=== PATIENT | male | born 1955 | race Caucasian/White ===

== ENCOUNTER 2019-05-31 07:20 | Emergency (ER) | payer OTHER ==
--- NOTE | 2019-05-31 07:56 | ED Physician Documentation ---
PD HPI SKIN - Stated complaint Stated Complaint: R LEG INFECTION - Chief complaint Chief Complaint: Wound - History obtained from History obtained from: Patient - History of Present Illness Timing - onset: How many days ago (6) Timing - duration: Days (6) Timing - details: Gradual onset Location: RLE Quality / character: Painful, Discolored, Swelling, Draining Associated symptoms: No: Fever Recently seen: Not recently seen - Additional information Additional information: There is a 63-year-old man who presents with complaints that he developed infection on the right lower leg 6 days ago progressively got larger and finally ruptured and started draining. He said he has been experiencing this recurrently since October or November since he moved here from [place]. He usually put heat packs on them and they will open and drain spontaneously. He has been putting Neosporin on it. He was referred to a door to door selling distributor by his primary care provider but he got snowed out of the appointment after waiting 4 weeks last week. He is feeling very fatigued but has not been running any fever. Never had this cultured. He thinks he is been on 1 round of antibiotics at one point for it. He does have vitiligo but does not take medications for it and denies any concerns regarding HIV. 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 Interestingly just before he started getting these boils his primary care provider in [place] where he lived previously had placed him on 2 rounds of a Medrol Dosepak for low back pain prior to his travel across country to move here. Review of Systems Constitutional: reports: Fatigue. denies: Fever Skin: reports: Rash, Lesions Neurologic: reports: Generalized weakness Endocrine: reports: Other (Patient was borderline diabetic but he lost 45 pounds and monitors his blood sugar. He no longer has hyperglycemia.) Immunocompromised: denies: Immunocompromised, HIV/AIDS PD PAST MEDICAL HISTORY - Present Medications Home Medications: Ambulatory Orders Medication Instructions Recorded Confirmed Mupirocin 22 gm TP BID #22 oint...g. 05/31/19 Sulfamethox/Trimeth 800/160 1 each PO BID #14 tablet 05/31/19 [Bactrim Ds 800/160] - Allergies Allergies/Adverse Reactions: Allergies Allergy/AdvReac Type Severity Reaction Status Date / Time morphine AdvReac Unknown Verified 05/31/19 07:23 PD ED PE NORMAL - Vitals Vital signs reviewed: Yes - General General: Alert and oriented X 3, No acute distress, Well developed/nourished, Other (Very pleasant 63-year-old man who is not in any acute distress. He has images on his phone that show the progression of this particular lesion.) - HEENT HEENT: Atraumatic - Respiratory Respiratory: No respiratory distress - Derm Derm: Other (The lateral anterior aspect of the right lower leg there is a circular area of erythema and induration that measures approximately 4 cm in diameter in the center of this is open and oozing a bloody thicker material which was sent for culture. 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 I discussed with the patient my concerns that he has a MRSA colonization and how to work on relieving that with Hibiclens skin washings, taking probiotics. At this point this wound is open and draining I do not see any indication for antibiotics but he was provided a prescription for Bactrim if the redness continues to spread. He is also given a prescription for mupirocin ointment and instructed on its use. Follow-up with his primary care provider as needed. Departure - Departure Disposition: 01 Home, Self Care Clinical Impression: Abscess Condition: Good Instructions: ED Abscess IandD Follow-Up: SKYE ROBLES MD [Primary Care Provider] - Prescriptions: Mupirocin 22 gm TP BID #22 oint...g. Sulfamethox/Trimeth 800/160 [Bactrim Ds 800/160] 1 each PO BID #14 tablet Comments: Use Hibiclens or chlorhexidine soap to wash your entire body daily for the next 10 days and then weekly or every other week basis. Use Cetaphil lotion to help keep your skin moisturized. Continue to do warm compresses, Epson salt soaks or sitz baths to keep this open and draining. Use the mupirocin ointment twice a day for the next 3 to 5 days and if you have any other lesions that develop and open up you can use it on those as well. Monitor the redness and if it is spreading outside the margins that were outlined here today start the Bactrim antibiotic twice a day. We will culture this today and you may get a call regarding the results. Otherwise results can be followed up with Dr. Robles. Take probiotics orally that can be purchased over the counter. [employer] or [employer] brand are a good product, but if you cannot find those specific probiotics ([employer] food stores tend to have a better selection than the Pharmacy) any probiotic is better than none. Follow-up with your primary care provider for reevaluation if you continue to experience these. Sometimes people need a nasal swab culture to rule out intranasal colonization with the MRSA bacteria that can continue to cause outbreaks even if we cleared off the skin.
[2019-05-31 08:00] VITALS: BP 173/111
== END 2019-05-31 08:06 | disposition home or self-care (01) ==
LOC: ED 07:20
DX: L02.415 Cutaneous abscess of right lower limb (principal)
CPT/HCPCS: 87070; 87181; 87205; 99283; 99284

== ENCOUNTER 2019-06-16 08:00 | Outpatient (CLI) | payer OTHER ==
[2019-06-16 12:32] LABS: BASOPHILS # (AUTO) 0.1 10^3/uL (0.0-0.1); BASOPHILS % (AUTO) 0.9 %; EOSINOPHILS # (AUTO) 0.1 10^3/uL (0.0-0.7); EOSINOPHILS % (AUTO) 1.3 %; HGB - HEMOGLOBIN 16.2 g/dL (14.0-18.0); LYMPHOCYTES # (AUTO) 1.9 10^3/uL (1.5-3.5); LYMPHOCYTES % (AUTO) 20.2 %; MEAN CORPUSCULAR HGB CONC 32.1 g/dL (32.0-36.0); MEAN CORPUSCULAR VOLUME 90.2 fL (80.0-94.0); MEAN PLATELET VOLUME 9.9 fL (7.4-11.4); MONOCYTES # (AUTO) 0.8 10^3/uL (0.0-1.0); MONOCYTES % (AUTO) 8.4 %; NEUTROPHILS # (AUTO) 6.3 10^3/uL (1.5-6.6); NEUTROPHILS % (AUTO) 68.8 %; PLT - PLATELET COUNT 227 10^3/uL (130-450); RED BLOOD COUNT 5.59 10^6/uL (4.70-6.10); RED CELL DISTRIBUTION WIDTH 13.8 % (12.0-15.0); WHITE BLOOD COUNT 9.2 x10^3/uL (4.8-10.8)
[2019-06-16 13:12] LABS: HB2 TOTAL 16.3 g/dL; HEMOGLOBIN A1C 0.79 g/dL; HEMOGLOBIN A1C % 6.6 % (4.6-6.2)
[2019-06-16 13:14] LABS: ALBUMIN 4.6 g/dL (3.2-5.5); ALBUMIN/GLOBULIN RATIO 1.5 (1.0-2.2); ALKALINE PHOSPHATASE 53 IU/L (42-121); ALT ALANINE AMINOTRANSFERASE 44 IU/L (10-60); AST ASPARTATE AMINOTRANSFERASE 29 IU/L (10-42); BILIRUBIN,TOTAL 0.8 mg/dL (0.2-1.0); BUN - BLOOD UREA NITROGEN 17 mg/dL (6-20); CALCIUM 9.4 mg/dL (8.5-10.3); CARBON DIOXIDE - CO2 25 mmol/L (21-32); CHLORIDE 102 mmol/L (101-111); CHOL/HDL RATIO 3.5 (<5.0); CHOLESTEROL 159 mg/dL; CREATININE 0.9 mg/dL (0.6-1.2); GFR - MDRD 85 (>89); GLUCOSE 118 mg/dL (70-100); HDL CHOLESTEROL 46 mg/dL; LDL CHOLESTEROL,CALCULATED 98 mg/dL; LDL/HDL RATIO 2.1 (<3.6); SODIUM 135 mmol/L (135-145); TOTAL PROTEIN 7.7 g/dL (6.7-8.2); VLDL CHOLESTEROL 15 mg/dL
== END 2019-06-16 23:59 | disposition home or self-care (01) ==
LOC: LAB.N 08:00
PROVIDERS: ATTEND Family Medicine
DX: E78.5 Hyperlipidemia, unspecified (principal); I10 Essential (primary) hypertension; E11.9 Type 2 diabetes mellitus without complications; L02.91 Cutaneous abscess, unspecified; Z85.46 Personal history of malignant neoplasm of prostate
CPT/HCPCS: 36415; 80053; 80061; 83036; 83721; 84153; 84443; 85025

== ENCOUNTER 2020-04-16 07:00 | Outpatient (CLI) | payer OTHER ==
[2020-04-16 20:10] LABS: BASOPHILS # (AUTO) 0.1 10^3/uL (0.0-0.1); BASOPHILS % (AUTO) 0.9 %; EOSINOPHILS # (AUTO) 0.1 10^3/uL (0.0-0.7); EOSINOPHILS % (AUTO) 1.6 %; HGB - HEMOGLOBIN 15.8 g/dL (14.0-18.0); LYMPHOCYTES # (AUTO) 1.9 10^3/uL (1.5-3.5); LYMPHOCYTES % (AUTO) 24.8 %; MEAN CORPUSCULAR HEMOGLOBIN 30.4 pg (27.0-31.0); MEAN CORPUSCULAR HGB CONC 32.8 g/dL (32.0-36.0); MEAN CORPUSCULAR VOLUME 92.7 fL (80.0-94.0); MEAN PLATELET VOLUME 10.3 fL (7.4-11.4); MONOCYTES # (AUTO) 0.7 10^3/uL (0.0-1.0); MONOCYTES % (AUTO) 8.5 %; NEUTROPHILS # (AUTO) 4.9 10^3/uL (1.5-6.6); NEUTROPHILS % (AUTO) 64.1 %; PLT - PLATELET COUNT 174 10^3/uL (130-450); RED BLOOD COUNT 5.19 10^6/uL (4.70-6.10); RED CELL DISTRIBUTION WIDTH 13.8 % (12.0-15.0); WHITE BLOOD COUNT 7.6 x10^3/uL (4.8-10.8)
[2020-04-16 20:25] LABS: CREATININE,URINE 244.3 mg/dL; MICROALBUM/CREATININE RATIO,UR 3.3 ug/mg (<30.0); MICROALBUMIN,URINE 0.8 mg/dL (0-300.0)
[2020-04-16 20:35] LABS: ALBUMIN 4.4 g/dL (3.2-5.5); ALBUMIN/GLOBULIN RATIO 1.6 (1.0-2.2); ALKALINE PHOSPHATASE 43 IU/L (42-121); ALT ALANINE AMINOTRANSFERASE 41 IU/L (10-60); AST ASPARTATE AMINOTRANSFERASE 28 IU/L (10-42); BILIRUBIN,TOTAL 0.7 mg/dL (0.2-1.0); BUN - BLOOD UREA NITROGEN 17 mg/dL (6-20); CALCIUM 9.7 mg/dL (8.5-10.3); CARBON DIOXIDE - CO2 28 mmol/L (21-32); CHLORIDE 103 mmol/L (101-111); CHOL/HDL RATIO 2.7 (<5.0); CHOLESTEROL 141 mg/dL; CREATININE 0.8 mg/dL (0.6-1.2); GLUCOSE 110 mg/dL (70-100); HDL CHOLESTEROL 52 mg/dL; LDL CHOLESTEROL,CALCULATED 78 mg/dL; LDL/HDL RATIO 1.5 (<3.6); SODIUM 139 mmol/L (135-145); TOTAL PROTEIN 7.1 g/dL (6.7-8.2); VLDL CHOLESTEROL 11 mg/dL
[2020-04-16 21:07] LABS: HEMOGLOBIN A1c% 6.9 % (4.27-6.07)
== END 2020-04-16 23:59 | disposition home or self-care (01) ==
LOC: LAB.WCP 07:00
PROVIDERS: ATTEND Family Medicine
DX: E11.9 Type 2 diabetes mellitus without complications (principal); E78.5 Hyperlipidemia, unspecified; Z85.46 Personal history of malignant neoplasm of prostate; I10 Essential (primary) hypertension; J44.9 Chronic obstructive pulmonary disease, unspecified
CPT/HCPCS: 36415; 80053; 80061; 82043; 82570; 83036; 83721; 84153; 84443; 85025

== ENCOUNTER 2021-06-07 14:39 | Outpatient (CLI) | payer MEDICARE, OTHER ==
--- NOTE | 2021-06-07 15:31 | CT Report ---
PROCEDURE: HEAD WO INDICATIONS: Loss of consciousness after fall TECHNIQUE: Noncontrast 4.5 mm thick angled axial sections acquired from the foramen magnum to the vertex. For r adiation dose reduction, the following was used: automated exposure control, adjustment of mA and/or kV according to patient size. COMPARISON: None. FINDINGS: Image quality: Excellent. CSF spaces: Basal cisterns are patent. No extra-axial fluid collections. Ventricles are normal in size and shape. Brain: No midline shift. No intracranial masses or hemorrhage. Pineda-white matter interface is norm al. Skull and face: Calvarium and visualized facial bones are intact, without suspicious lesions. Sinuses: Visualized sinuses and mastoids are clear. IMPRESSION: No acute intracranial abnormality. Reviewed by: Johnson Menon MD on 06/07/2021 3:30 PM PST Approved by: Johnson Menon MD on 06/07/2021 3:30 PM [facility] Station ID: [id number]
== END 2021-06-07 14:40 | disposition home or self-care (01) ==
LOC: DI 14:39
PROVIDERS: ATTEND Internal Medicine
DX: R55 Syncope and collapse (principal); M54.50 Low back pain, unspecified; S06.9X9A Unspecified intracranial injury with loss of consciousness of unspecified duration, initial encounter; W19.XXXA Unspecified fall, initial encounter

== ENCOUNTER 2021-07-01 06:50 | Outpatient (CLI) | payer MEDICARE, OTHER ==
[2021-07-01 07:42] LABS: CREATININE 0.8 mg/dL (0.6-1.2)
[2021-07-01] MEDS ORDERED: GADOBUTROL 10 MMOL/10 ML VIAL ONE (08:26)
--- NOTE | 2021-07-01 13:36 | MRI Report ---
PROCEDURE: Lumbar Spine W/WO INDICATIONS: LOW BACK PAIN CONTRAST: IV CONTRAST: Gadavist ml: 9 TECHNIQUE: Noncontrast sagittal T1 spin echo and T2 fast spin echo, sagittal STIR, axial T1 and T2 fast spin ech o through the lumbar spine. In cases with scoliosis, additional coronal T2 fast spin echo may be per formed. After the administration of contrast, sagittal and axial T1 spin echo with fat saturation th rough the lumbar spine. COMPARISON: None. FINDINGS: Image quality: Excellent. Alignment and curvature: There is normal bony alignment. Marrow: Marrow is of normal overall signal. No acute vertebral body compression fractures. No susp icious marrow enhancement. Spinal cord: Conus medullaris terminates at the L1 level. Visualized spinal cord demonstrates vinny l signal, without suspicious enhancement. Paraspinous soft tissues: No paravertebral masses or abnormal enhancement. T12-L1: Normal in appearance. L1-L2: The disc height is well-preserved. There is loss of disc signal seen. Minimal disc bulge ca n be seen at this level. Mild to moderate facet hypertrophy is seen. Mild bilateral neural foramina l narrowing is seen. No central canal narrowing is seen. L2-L3: The disc height and disc signal are well preserved. Mild disc bulge is seen. Moderate fac et hypertrophy is seen. There is moderate left-sided and mild right-sided neuroforaminal narrowing. Mild to moderate central canal narrowing is seen. L3-L4: The disc height is well-preserved. There is loss of disc signal seen. Moderate disc bulge i s seen at this level. A superimposed central disc protrusion is seen. At least moderate facet hypert rophy can be seen at this level. There is moderate to severe bilateral neuroforaminal narrowing seen, left worse than right. Compression is seen upon the exiting nerve roots. Mild central canal narrow ing is seen. L4-L5: Mild loss of disc height and disc signal are seen. Moderate disc bulge is seen at this leve l. A superimposed central disc protrusion is seen. At least moderate facet hypertrophy is seen at th is level. There is moderate to severe left-sided and at least moderate right-sided neuroforaminal paz rowing. Compression is seen upon the exiting nerve roots. Mild loss of disc height and disc signal are seen. L5-S1: Mild loss of disc height and disc signal are seen. Moderate disc bulge is seen, with a centr al/left disc extrusion, with inferior migration of the disc material, as on series 401 image 9 and on series 701 image 5. Moderate facet hypertrophy is seen. There is moderate to severe bilateral neur oforaminal narrowing seen. Compression is seen upon the exiting nerve roots. Moderate central canal narrowing is seen. IMPRESSION: Multiple levels of lumbar spine degenerative change are seen, which are worst at the L5-S1 level. At this level, there is a central/left disc extrusion present. Moderate to severe bilateral neuroforamin al narrowing is also seen at this level, with associated exiting L5 nerve root compression. Reviewed by: Fritz Salmon MD on 07/01/2021 12:34 PM [place] Approved by: Fritz Salmon MD on 07/01/2021 12:34 PM [facility] [place] Station ID: [id number]
[2021-07-01] MEDS ORDERED: GADOBUTROL 10 MMOL/10 ML VIAL IVP ONE (16:29)
== END 2021-07-01 06:51 | disposition home or self-care (01) ==
LOC: LAB 06:50
PROVIDERS: ATTEND Internal Medicine
DX: S06.9X9A Unspecified intracranial injury with loss of consciousness of unspecified duration, initial encounter (principal); Z91.81 History of falling; R55 Syncope and collapse; M47.816 Spondylosis without myelopathy or radiculopathy, lumbar region; M51.36 Other intervertebral disc degeneration, lumbar region; M48.061 Spinal stenosis, lumbar region without neurogenic claudication; M51.26 Other intervertebral disc displacement, lumbar region; M51.27 Other intervertebral disc displacement, lumbosacral region; M47.817 Spondylosis without myelopathy or radiculopathy, lumbosacral region; M51.37 Other intervertebral disc degeneration, lumbosacral region; M48.07 Spinal stenosis, lumbosacral region
CPT/HCPCS: 36415; 72158; 82565; A9585

== ENCOUNTER 2023-01-09 12:28 | Outpatient (CLI) | payer MEDICARE, OTHER ==
--- NOTE | 2023-01-09 14:47 | Ultrasound Report ---
PROCEDURE: Abdomen Limited INDICATIONS: ELEVATED ENZYMES LEVEL TECHNIQUE: Real-time focused scanning was performed of the abdomen, with image documentation. COMPARISONS: None. FINDINGS: Liver: Increased liver echogenicity. Lobular contour to the liver. 5 mm hypoechoic focus, favored to represent a simple cyst. Gallbladder: Unremarkable. Biliary ducts: Intrahepatic bile ducts are non-dilated. Extrahepatic bile duct caliber measures 2 m m. Normal is 6-7 mm or less in diameter, or 10 mm or less post-cholecystectomy. Pancreas: Visualized portions of the pancreas are sonographically normal. Right kidney: Normal in size and echotexture. Right kidney measures 11.5 cm long. No hydronephrosis or nephrolithiasis. No solid masses. No complex renal cystic lesions which require follow-up. Aorta: Visualized aorta is normal in caliber at less than 3 cm. IVC: Intrahepatic inferior vena cava is patent. IMPRESSION: 1.Increased echogenicity of the liver with a lobular contour raising concern for cirrhosis with super imposed steatosis. 2.There is a 5 mm hypoechoic focus within the left hepatic lobe, favored to represent a simple cyst. 3.The gallbladder is within normal limits. No intra or extrahepatic biliary ductal dilatation. Reviewed by: Almas Addison MD on 01/09/2023 2:46 PM PDT Approved by: Almas Addison MD on 01/09/2023 2:46 PM PDT Station ID: [id number]
== END 2023-01-09 12:29 | disposition home or self-care (01) ==
LOC: DI 12:28
PROVIDERS: ATTEND Internal Medicine
DX: R74.8 Abnormal levels of other serum enzymes (principal); R93.2 Abnormal findings on diagnostic imaging of liver and biliary tract

== ENCOUNTER 2023-05-20 15:13 | Outpatient (CLI) | payer MEDICARE, OTHER ==
--- NOTE | 2023-05-20 16:57 | CT Report ---
PROCEDURE: Head WO INDICATIONS: HEADACHE TECHNIQUE: Noncontrast 4.5 mm thick angled axial sections acquired from the foramen magnum to the vertex. For r adiation dose reduction, the following was used: automated exposure control, adjustment of mA and/or kV according to patient size. COMPARISON: 06/07/2021 FINDINGS: Image quality: Excellent. CSF spaces: Basal cisterns are patent. No extra-axial fluid collections. Ventricles are normal in size and shape. Brain: No midline shift. No intracranial masses or hemorrhage. Pineda-white matter interface is norm al. Skull and face: Calvarium and visualized facial bones are intact, without suspicious lesions. Sinuses: Visualized sinuses and mastoids are clear. IMPRESSION: No acute intracranial pathology. No intracranial hemorrhage is seen. Reviewed by: Fritz Salmon MD on 05/20/2023 3:55 PM [place] Approved by: Fritz Salmon MD on 05/20/2023 3:55 PM [facility] Station ID: [id number]
== END 2023-05-20 15:14 | disposition home or self-care (01) ==
LOC: DI 15:13
PROVIDERS: ATTEND Internal Medicine
DX: R51.9 Headache, unspecified (principal)

== ENCOUNTER 2023-07-20 15:05 | Emergency (ER) | payer MEDICARE, OTHER ==
[2023-07-20 17:14] LABS: BASOPHILS # (AUTO) 0.1 10^3/uL (0.0-0.1); BASOPHILS % (AUTO) 1.1 %; EOSINOPHILS # (AUTO) 0.3 10^3/uL (0.0-0.7); EOSINOPHILS % (AUTO) 4.4 %; HCT - HEMATOCRIT 47.5 % (42.0-52.0); HGB - HEMOGLOBIN 15.5 g/dL (14.0-18.0); LYMPHOCYTES % (AUTO) 27.6 %; MEAN CORPUSCULAR HEMOGLOBIN 29.5 pg (27.0-31.0); MEAN CORPUSCULAR HGB CONC 32.6 g/dL (32.0-36.0); MEAN CORPUSCULAR VOLUME 90.5 fL (80.0-94.0); MEAN PLATELET VOLUME 9.3 fL (7.4-11.4); MONOCYTES # (AUTO) 0.6 10^3/uL (0.0-1.0); MONOCYTES % (AUTO) 8.2 %; NEUTROPHILS # (AUTO) 4.2 10^3/uL (1.5-6.6); NEUTROPHILS % (AUTO) 58.6 %; PLT - PLATELET COUNT 191 10^3/uL (130-450); RED BLOOD COUNT 5.25 10^6/uL (4.70-6.10); RED CELL DISTRIBUTION WIDTH 13.6 % (12.0-15.0); WHITE BLOOD COUNT 7.1 x10^3/uL (4.8-10.8)
[2023-07-20 17:29] LABS: ALBUMIN 4.3 g/dL (3.2-5.5); BILIRUBIN,TOTAL 0.4 mg/dL (0.2-1.0); CALCIUM 9.8 mg/dL (8.5-10.3); CREATININE 0.7 mg/dL (0.6-1.3); TOTAL PROTEIN 6.5 g/dL (6.4-8.9)
--- NOTE | 2023-07-20 18:07 | MRI Report ---
PROCEDURE: Brain WO INDICATIONS: right sided paresthesias TECHNIQUE: Noncontrast axial T1 spin echo, axial T2 fast spin echo, sagittal and axial FLAIR, coronal T2 fast sp in echo, axial gradient echo, axial diffusion and ADC through the brain. COMPARISON: CT head dated 05/20/2023 FINDINGS: Image quality: Excellent. CSF Spaces: Basal cisterns are patent. No extra-axial fluid collections. Ventricles are normal in size and shape. Brain: No intracranial masses or hemorrhage. Pineda/white matter interface is normal. Brainstem appe ars normal. Diffusion-weighted images demonstrate no acute ischemic insult. No chronic ischemic ins ults. Normal intravascular flow voids are present. Skull and face: Calvarium has normal marrow signal. Orbits appear normal. Sinuses: Minimal mucosal thickening of the right maxillary sinuses. Other paranasal sinuses and masto ids are clear. IMPRESSION: MRI brain without acute intracranial abnormalities. No evidence for acute cerebral infarction/ischemi a. Mild right maxillary sinus disease. Reviewed by: Joaquin John MD on 07/20/2023 5:06 PM [facility] Approved by: Joaquin John MD on 07/20/2023 5:06 PM [facility] Station ID: [id number]
--- NOTE | 2023-07-20 18:29 | ED Physician Documentation ---
History of Present Illness - Stated complaint Stated Complaint: RT ARM TINGLING,RT HAND PX - Chief complaint Chief Complaint: Neuro - Additonal information Additional information: 67-year-old male presents emergency department for new right arm and leg tingling. Patient says that he also has been suffering from headaches now for the last 5 to 6 months. He had a head CT in May which was unremarkable he called his PCP today for possible cervical MRI for further evaluation of these recurrent headaches and they told him to come to the emergency department for possible new TIA. Patient has no unilateral weakness he denies any slurred speech or confusion throughout this process. He said that he started to notice numbness and tingling to the anterior portion of his right leg yesterday and it has slowly progressed throughout the entire right leg as well as now to the right arm. He said that he woke up with a flushed face couple hours ago. He has had no fevers or chills no recent illnesses no new weakness. PD PAST MEDICAL HISTORY - Past Medical History Past Medical History: Yes Cardiovascular: Hypertension, High cholesterol Respiratory: COPD Neuro: None, Headaches Endocrine/Autoimmune: Type 2 diabetes GI: Hiatal hernia, Cirrhosis : None Psych: None Musculoskeletal: None Derm: None - Past Surgical History Past Surgical History: Yes Ortho: Shoulder arthroplasty, Spine surgery HEENT: Rhinoplasty - Present Medications Home Medications: Ambulatory Orders Medication Instructions Recorded Confirmed Mupirocin 22 gm TP BID #22 oint...g. 05/31/19 Sulfamethox/Trimeth 800/160 1 each PO BID #14 tablet 05/31/19 [Bactrim Ds 800/160] - Allergies Allergies/Adverse Reactions: Allergies Allergy/AdvReac Type Severity Reaction Status Date / Time morphine AdvReac Unknown Verified 05/31/19 07:23 - Social History Does the pt smoke?: No Smoking Status: Never smoker Does the pt drink ETOH?: No Does the pt have substance abuse?: Yes - Immunizations Immunizations are current?: Yes - POLST Patient has POLST: No PD ED PE NORMAL - Vitals Vital signs reviewed: Yes - General General: Alert and oriented X 3, No acute distress, Well developed/nourished - HEENT HEENT: Atraumatic, PERRL, EOMI, Moist mucous membranes - Neck Neck: Supple, no meningeal sign - Cardiac Cardiac: RRR, No murmur, No gallop, Strong equal pulses - Respiratory Respiratory: No respiratory distress, Clear bilaterally - Abdomen Abdomen: Normal bowel sounds, Soft, Non tender - Back Back: No CVA TTP, No spinal TTP - Derm Derm: Normal color, Warm and dry, No rash - Extremities Extremities: No deformity, No tenderness to palpate, Normal ROM s pain, No edema, Other (full strength to upper and lower extremities) - Neuro Neuro: Alert and oriented X 3, No motor deficit, Normal speech, Other (left arm, leg, and face paresthesias) Eye Opening: Spontaneous Motor: Obeys Commands Verbal: Oriented GCS Score: 15 - Psych Psych: Normal mood Results - Vitals Vitals: Vital Signs - 24 hr 07/20/23 07/20/23 07/20/23 15:23 17:29 19:00 Temperature 36.2 C L Heart Rate 72 68 63 Respiratory 16 18 22 Rate Blood Pressure 169/106 H 174/105 H 176/106 H O2 Saturation 97 97 94 Oxygen O2 Source Room air - Labs Labs: Laboratory Tests 07/20/23 07/20/23 17:10 17:10 WBC 7.1 RBC 5.25 Hgb 15.5 Hct 47.5 MCV 90.5 MCH 29.5 MCHC 32.6 RDW 13.6 Plt Count 191 MPV 9.3 Neut # (Auto) 4.2 Lymph # (Auto) 2.0 [place] # (Auto) 0.6 Eos # (Auto) 0.3 Baso # (Auto) 0.1 Absolute Nucleated RBC 0.00 Nucleated RBC % 0.0 Sodium 138 Potassium 4.0 Chloride 104 Carbon Dioxide 30 Anion Gap 4.0 L BUN 17 Creatinine 0.7 Estimated GFR (MDRD) 112 Glucose 98 Calcium 9.8 Magnesium 2.0 Total Bilirubin 0.4 AST 20 ALT 34 Alkaline Phosphatase 52 Total Protein 6.5 Albumin 4.3 Globulin 2.2 Albumin/Globulin Ratio 2.0 - Rads (name of study) head MR w/o Relevant Findings:: Final report received, EMP independent interpretation of test, Other (mild right axillary sinus disease) PD Medical Decision Making - ED course ED course: 67-year-old male presents emergency department for right-sided paresthesias to his face, right upper extremity, and leg. Differentials include TIA, CVA, neuropathy, nerve impingement. I decided to go ahead with a head MRI without contrast for further evaluation of this and overall his head MRI was unremarkable. It showed mild chronic right sinus disease but aside from that nothing significant no CVA no TIA no other neurological abnormalities. I am unsure what is causing this patient's right-s ided paresthesias but at this time no further emergent workup is indicated. He takes aspirin at home for his headaches he was given ibuprofen here in the emergency department and said that he did not want to pursue any further medications at this point in time he said he is planning on following up with his primary care provider for possible outpatient MRI for further evaluation of this right-sided paresthesia and will update his PCP about today's ER visit.Labs were completed to look for some sort of possible electrolyte abnormality and labs are overall unremarkable including a CBC and CMP.Patient was given strict ER return precautions all questions answered he is safe for discharge at this time and told to follow-up with his PCP this week. Departure - Departure Disposition: 01 Home, Self Care Clinical Impression: Paresthesia of right arm and leg Headache Qualifiers: Headache type: unspecified Headache chronicity pattern: chronic headache Intractability: intractable Qualified Code(s): R51.9 - Headache, unspecified Instructions: ED Cephalgia Unspecified Comments: Thank you for trusting us with your care. We have completed a brain MRI to make sure that you are not suffering from any sort of stroke and we are not seeing any sort of intracranial abnormalities at this time aside from some mild right maxillary sinus disease. Please follow-up with your primary care provider for further evaluation of the chronic headaches that you are experiencing and let them know about your ER MRI being unremarkable today. I have attached the MRI radiology notes below for you. Please come back to the emergency department if you are starting to develop any neurological symptoms such as confusion, slurred speech, difficulty walking, or any other strokelike symptoms. COMPARISON: CT head dated 05/20/2023 MRI FINDINGS: Image quality: Excellent. CSF Spaces: Basal cisterns are patent. No extra-axial fluid collections. Ventricles are normal in size and shape. Brain: No intracranial masses or hemorrhage. Pineda/white matter interface is normal. Brainstem appears normal. Diffusion-weighted images demonstrate no acute ischemic insult. No chronic ischemic insults. Normal intravascular flow voids are present. Skull and face: Calvarium has normal marrow signal. Orbits appear normal. s: Minimal mucosal thickening of the right maxillary sinuses. Other paranasal sinuses and mastoids are clear. IMPRESSION: MRI brain without acute intracranial abnormalities. No evidence for acute cerebral infarction/ischemia. Mild right maxillary sinus disease. Forms: PCP List Discharge Date/Time: 07/20/23 19:10
[2023-07-20] MEDS: IBUPROFEN 600 MG TABLET PO STA (19:11)
[2023-07-20 19:13] VITALS: BP 176/106; O2SAT 94
== END 2023-07-20 19:10 | disposition home or self-care (01) ==
LOC: ED 15:05
DX: R20.0 Anesthesia of skin (principal); R51.9 Headache, unspecified; I10 Essential (primary) hypertension; E78.00 Pure hypercholesterolemia, unspecified; J44.9 Chronic obstructive pulmonary disease, unspecified; E11.9 Type 2 diabetes mellitus without complications; Z86.39 Personal history of other endocrine, nutritional and metabolic disease
CPT/HCPCS: 36415; 80053; 83735; 85025; 99284

== ENCOUNTER 2023-08-17 08:15 | Outpatient (CLI) | payer MEDICARE, OTHER ==
--- NOTE | 2023-08-17 16:50 | MRI Report ---
PROCEDURE: MRI cervical spine without contrast INDICATIONS: ARM NUMBNESS TECHNIQUE: Multiplanar multisequential MRI of the cervical spine was obtained without contrast. COMPARISON: None. FINDINGS: Alignment and Curvature: There is normal bony alignment. Bone Marrow: Marrow demonstrates normal overall signal. Spinal Cord: Visualized spinal cord has normal size and signal. No cerebellar tonsillar herniation. Paraspinal Soft Tissues: No paravertebral masses. Prevertebral soft tissues are normal in thickness . C2-C3: Normal in appearance. C3-C4: Disc space narrowing posterior disc osteophyte complex and hypertrophic uncovertebral joints results in moderate central stenosis. Mild bilateral foraminal stenosis. C4-C5: Disc spaces maintained. Disc osteophyte complex results in mild central stenosis. Arthropathy contributes to moderate bilateral foraminal stenosis. C5-C6: Disc spaces maintained. No central or foraminal stenosis C6-C7: Disc spaces maintained. No central or foraminal stenosis C7-T1: Normal in appearance. IMPRESSION: Multilevel degenerative disc disease and arthropathy results in varying degrees of central and forami nal stenosis including moderate central stenosis at C3-4 Reviewed by: Scotty Triado MD on 08/17/2023 3:49 PM [facility] Approved by: Scotty Tirado MD on 08/17/2023 3:49 PM [facility] Station ID: [id number]
== END 2023-08-17 08:16 | disposition home or self-care (01) ==
LOC: DI 08:15
PROVIDERS: ATTEND Internal Medicine
DX: M50.31 Other cervical disc degeneration, high cervical region (principal); M48.02 Spinal stenosis, cervical region